=== PATIENT | male | born 1945 | race Native Hawaiian/Other Pacific Islander ===

== ENCOUNTER 2019-11-20 22:23 | Emergency (ER) | payer OTHER ==
[~2019-11-20] VITALS: Ht 180.3 cm; Wt 98.9 kg
[2019-11-20 23:18] LABS: PLATELET COUNT 233 K/uL (142-355)
[2019-11-20 23:29] LABS: POTASSIUM 3.5 mmol/L (3.6-5.2)
[2019-11-20 23:47] VITALS: BP 120/82; TEMP 98.2
[2019-11-21] MEDS ORDERED: ALLO300T23 PO (00:13)
[2019-11-21] MEDS ORDERED: DRISDOL50000 UNIT PO (00:14)
[2019-11-21] MEDS ORDERED: FENOFIBRATE150 MG PO (00:15)
[2019-11-21] MEDS ORDERED: FERROUS SULF325 M1 PO (00:15)
[2019-11-21] MEDS ORDERED: GLIP10TA55 PO (00:16)
[2019-11-21] MEDS ORDERED: HYDR25CA25 PO (00:17)
[2019-11-21] MEDS ORDERED: METO50TA63 PO (00:18)
[2019-11-21] MEDS ORDERED: OMEPRAZOLE DR40 MG PO (00:18)
[2019-11-21] MEDS ORDERED: PROVENTIL108 MCG/AC INH (00:19)
[2019-11-21] MEDS ORDERED: SPIRIVA HANDIH18 MCG INH (00:20)
== END 2019-11-20 23:48 | disposition other institution (70) ==
LOC: ED 22:23
PROVIDERS: Emergency Medicine
DX: R44.2 Other hallucinations (principal); Z11.59 Encounter for screening for other viral diseases; Z04.6 Encounter for general psychiatric examination, requested by authority
CPT/HCPCS: 36415; 80053; 81000; 85027; 87635; 93005; 99283; G2023; U00003